=== PATIENT | male | born 2000 | race Two or more races ===

== ENCOUNTER 2019-03-06 21:18 | Emergency (ER) | payer MEDICAID ==
[~2019-03-06] VITALS: Ht 167.6 cm; Wt 70.3 kg
[2019-03-06 21:22] VITALS: BP 120/74
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
[2019-03-06] MEDS ORDERED: IBUPROFEN600 MG ORAL (21:58)
--- NOTE | 2019-03-06 22:04 | NUR ---
ED Nurse Note: Patient is cleared for discharge, no s/s of acute distress. Patient verbalized understanding of discharge instructions. Patient departed with all belongings accompanied by his family.
[2019-03-06 22:05] VITALS: BP 120/74
== END 2019-03-06 22:02 | disposition home or self-care (01) ==
LOC: EMR 21:55
DX: S39.012A Strain of muscle, fascia and tendon of lower back, initial encounter (principal); S70.211A Abrasion, right hip, initial encounter; V43.52XA Car driver injured in collision with other type car in traffic accident, initial encounter; Y92.410 Unspecified street and highway as the place of occurrence of the external cause
CPT/HCPCS: 72020; 73552; Z7502; 99283